=== PATIENT | female | born 1950 | race Caucasian/White ===

== ENCOUNTER → 2016-07-04 | Outpatient (CLI) | payer MEDICARE, BC ==
[2016-07-04 15:39] VITALS: BP 158/80; PULSE 54; TEMP 97.9; BMI 60.7
--- NOTE | 2016-07-04 16:01 | P.HPBAR ---
Bariatric H&P - History & Physicial H&P Date: 07/04/16 History & Physicial: Visit/CC: inital bariatric clinic visit Patient initial contact: 07-04-16 Initial weight: Initial weight in pounds: Height: 5 ft 4 in Initial BMI: Last weight: Current weight: 160.345 kg Current weight in pounds: 353.50 Current BMI: 60.7 [place] body weight (based on NIH guidelines): 54.431 kg Excess body weight loss: The patient is a 65 year-old F who presents for Bariatric Assessment. She is known to our service. She underwent prior laparoscopic banding in 2006. In 2011 the patient had her band emptied as a preoperative measure for a upcoming mediastinoscopy. She has a history of advanced sarcoidosis. She had a complicated thyroidectomy resulting in vocal cord paralysis. The patient is interested in possible conversion to a sleeve gastrectomy because of ongoing issues with her weight including primarily neuropathy and joint pain. She does take daily prednisone at 10 mg. Her weight at its lowest was too overweight. After the band was emptied she states that she weighed around 250 pounds. Currently she resides at 3 and 53 pounds. She does describe some intermittent dysphagia. She feels a choking sensation at times that she attributes to the band. She believes that if she is not a candidate for sleeve gastrectomy she would like to consider lap band removal. Review of Systems The patient denies any acute changes in his vision or hearing, no dysphagia or odynophagia, no chest pain or shortness of breath, no dysuria or hematuria, no headache, no runny nose, no rectal bleeding or melena, no unexplained weight loss Past Medical History Past Medical History: Hypertension, Osteoarthritis (OA), Sleep Apnea/CPAP/BIPAP , Thyroid Disorder History of Any Multi-Drug Resistant Organisms: None Reported Past Surgical History: Bariatric Surgery, Section, Cholecystectomy Additional Past Surgical History / Comment(s): left knee replacement 2004 left hip replacement 2006 lap band 2007 thyroidectomy 2011 Past Anesthesia/Blood Transfusion Reactions: No Reported Reaction Past Psychological History: No Psychological Hx Reported Smoking Status: Never smoker Past Alcohol Use History: None Reported Past Drug Use History: None Reported Surgical - Exam Vital Signs Temp Pulse BP 97.9 F 54 L 158/80 07/04/16 15:07 07/04/16 15:07 07/04/16 15:07 Physical exam: General: Well-developed, well-nourished HEENT: Normocephalic, sclerae nonicteric Abdomen: Nontender, nondistended Extremities: No edema Neuro: Alert and oriented Bariatric Assessment & Plan (1) Morbid obesity Narrative/Plan: The patient I discussed the options in detail. She will attend a seminar this evening reintroducing her to her surgical options. We did order an upper GI today to evaluate for possible prolapse given her symptoms of dysphagia at times. We discussed the option of trying a lap band adjustment once again. I would like the patient to have medical clearance from the sarcoid clinic at the [facility] if she decides to follow through on conversion. Will require a preoperative upper endoscopy and appropriate preoperative workup. Status: Acute Bariatric Checklist Checklist: Plan: Checklist: EGD: 1. Hiatal hernia: 2. H. Pylori: HgbA1c: Vitamin D: Smoking: Never smoker Primary care physician referral: dr garcia Psychiatry clearance: Cardiology clearance: Sleep study: Diet journal: VTE risk score: VTE risk level: Rehab needs at discharge:
--- NOTE | 2016-07-04 16:57 | FL ---
GASTRIC BANDING ESOPHAGRAM CLINICAL HISTORY: Pain Gastric banding esophagram was performed. The patient ingested thin liquid barium without difficulty or delay. Gastric band is noted to be in place. There is no evidence for leak or obstruction. No prolapse is identified. IMPRESSION: Normal-appearing gastric banding device without leak or obstruction.
== END | disposition home or self-care (01) ==
LOC: BARWHC3 14:26
PROVIDERS: ATTEND Surgery
DX: E66.01 Morbid (severe) obesity due to excess calories (principal); I10 Essential (primary) hypertension; M19.90 Unspecified osteoarthritis, unspecified site; G47.30 Sleep apnea, unspecified; R13.10 Dysphagia, unspecified
CPT/HCPCS: 74220; G0463; 99201